=== PATIENT | female | born 1965 | race Caucasian/White ===

== ENCOUNTER → 2016-09-17 | Outpatient (CLI) | payer OTHER, BC ==
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
== END | disposition home or self-care (01) ==
LOC: C.RAD 14:38
PROVIDERS: ATTEND Nurse Practitioner Family
DX: M54.2 Cervicalgia (principal); V89.2XXA Person injured in unspecified motor-vehicle accident, traffic, initial encounter; M50.322 Other cervical disc degeneration at C5-C6 level; M50.321 Other cervical disc degeneration at C4-C5 level

== ENCOUNTER → 2017-01-20 | Outpatient (CLI) | payer BC ==
--- NOTE | 2017-01-21 12:30 | MAMMOGRAPHY REPORT ---
BILATERAL DIGITAL SCREENING MAMMOGRAM WITH CAD: 01/20/2017 CLINICAL HISTORY: Patient presents for routine screening. S/P bilateral augmentation. TECHNIQUE: Current study was also evaluated with a Computer Aided Detection (CAD) system. Bilateral CC and MLO views including implant displaced views were obtained. COMPARISON: Comparison is made to exams dated: 01/14/2016 mammogram, 01/02/2015 mammogram, 12/12/2013 m ammogram, 12/11/2012 mammogram, 11/29/2011 mammogram, and 11/23/2010 mammogram - [facility] ter. BREAST COMPOSITION: The tissue of both breasts is heterogeneously dense, which may obscure small mas ses. FINDINGS: No suspicious masses, calcifications, or areas of architectural distortion are noted in ei ther breast. There has been no significant interval change compared to prior exams. Bilateral subpec emilee saline implants are intact. IMPRESSION: ACR BI-RADS CATEGORY 2: BENIGN There is no mammographic evidence of malignancy. A 1 year screening mammogram is recommended. The pa tient will receive written notification of the results. Approximately 10% of breast cancers are not detected with mammography. A negative mammographic report should not delay biopsy if a clinically suggestive mass is present. Paris Amato M.D. /:01/20/2017 17:11:52 Cardiac Care Nurse: Wayne RAM)(M), [facility] letter sent: Normal 1/2 BI-RADS Code: ACR BI-RADS Category 2: Benign
== END | disposition home or self-care (01) ==
LOC: C.MAMM 16:24
PROVIDERS: ATTEND Physician Assistant
DX: Z12.31 Encounter for screening mammogram for malignant neoplasm of breast (principal)

== ENCOUNTER → 2017-08-18 | Outpatient (CLI) | payer OTHER ==
[~2017-08-18] VITALS: Ht 163.8 cm; Wt 54.2 kg
[2017-08-18 16:01] VITALS: BP 136/77; PULSE 77; Ht 163.8 cm; Wt 54.2 kg
== END | disposition home or self-care (01) ==
LOC: C.NEUR 15:20
PROVIDERS: ATTEND Internal Medicine Pulmonary Disease
DX: G47.33 Obstructive sleep apnea (adult) (pediatric) (principal); G47.19 Other hypersomnia

== ENCOUNTER → 2017-09-03 | Outpatient (CLI) | payer OTHER ==
--- NOTE | 2017-09-04 06:25 | PAP/PSG TECHNICIAN REPORT ---
[facility] Clinical Document Improvement Educator Polysomnogram Report Study name: None Report date: 09/04/2017 Study date: 09/03/2017 Referring Physician: Scott Herrera M.D. Name: ARIELARIALEXIS Interpreting Physician: Zack Pinto D.O. Date of : 1965 Clinical Document Improvement Educator: Tania Padilla, PSGT. Sex: Female Age: 52 StudyType: PSG Weight: 119.4 lbs Height: 52 years, Height 5' 4.5" Neck Circum:12.5 inches BMI: 20.18 Medications: Muti-Vit., Restasis, Vit.-C. Patient History 52 yr. Old female presents to the sleep lab for daytime fatigue, she states that she has been tired all her life. She sleeps an all her breaks while at work.ESS=14, Neck= 12 .5 inches. Parameters Monitored NPSG: E1-M2, E2-M1, Fp1-M2, Fp2-M1, F3-M2, F4-M2, F4-M1, C3-M2, C4-M2, C4-M1, O1-M2, O2-M2, O2-M1, T3-M2, T4-M1, P3-M2, P4-M1, CHIN1, CHIN2, HR, EKG, Legs, PFLOW, SNOR, FLOW, CFLOW, Tidal Volume, THOR, ABDO, SpO2, PLTH, CPRESS, ETCO2 Wave, ETCO2, pH Sleep Architecture Sleep Stages Time at Lights Off 10:14:58 PM STAGES Time (min.) TST (%) Time at Lights On 5:25:58 AM Wake 58.5 -- Total Recording Time (TRT) 431.50 min. N1 9.0 2 Total Sleep Period (TSP) 394.5 min. N2 281.0 75 Total Sleep Time (TST) 372.5min. N3 1.0 0 Awake Time 58.5 min. REM 81.5 22 Wake after Sleep Onset 22.0 min. Sleep Efficiency (SE) 86 % Sleep Onset Latency (SARAH) 36.5 min. Number of Stage 1 Shifts None Awakenings 10 Stage Changes 37 Number of REM periods 4 REM 81.5 22 REM Latency 95.0 min. NREM 291.0 78 Body Position Analysis Supine Right Left Side Prone Vertical Total Sleep Time (min.) 196.3 33.2 157.2 190.31 0.0 5.9 Total Sleep Time (%) 49% 9% 42% 51 0% N/A% Total Sleep Time REM (min.) 43.5 0.0 38.0 None 0.0 0.0 Total Sleep Time NREM (min.) 138.7 33.2 119.2 None 0.0 0.0 Intermittent Wake (min.) 14.2 3.7 34.8 None 0.0 5.9 Total Sleep Period (%) 49% None None None None None Arousals Myoclonus (PLM) * Events Count Index Events Count Index Spontaneous 41 7 Events Awake (PLMW) 1 1.0 Respiratory 13 2.1 Events Asleep w/ Arousal (PLMA) 1 0.2 PLM 1 0 Events Asleep w/o Arousal (PLMS) 62 10.0 Snoring 19 3 Total Asleep 63 10.1 Total 74 12 Total 64 9 Respiratory Analysis * CA OA MA CH H RERA Total Count 0 13 0 0 13 0 26 Index 0.0 2.1 0.0 0 2.1 0 4.2 Mean Duration 0.0 29.1 0.0 0.00 24.3 0.0 26.7 Longest Duration 0.0 40.5 0.0 0.00 0.0 0.0 47.8 Respiratory Event Summary Total Supine ~Supine Right Left Prone REM NREM Apneas Count 13 9 4 0 4 N/A 6 7 Index 2.1 3 1 0.0 1.5 N/A 4 1 Hypopneas (4% Desat) Count 13 9 4 0 4 N/A 4 9 Index 2.1 3.0 1 0.0 1.5 N/A 2.9 1.9 Apneas & All Hypopneas Count 26 18 8 0 8 N/A 10 16 Index 4.2 6 3 0 3 N/A 7.4 3.3 Respiratory Events (Route Sales Driver+All Hyp+RERA) Count 26 18 8 0 8 N/A 10 16 Index 4.2 6 3 0.0 3.1 N/A 7.4 3.3 Respiratory Related Arousal Count 13 18 5 0 5 N/A 4 9 Index 2.1 3 2 0 2 N/A 3 2 Snoring Analysis Supine Right Left Prone REM NREM Total Snore duration 8.1 min Snores count 158 9 132 N/A 124 175 299 Snore mean duration 1.6 Sec Snores index 52 16 50 N/A 91.3 36.1 48.2 TST with snoring (%) 2.2% Desaturation Event Summary: Minimum %SpO2 Event Count Mean/Min/Max Duration(sec.) Desaturation Index % Time In Bed > 90 27 33.2 / 13.3 / 60.0 3.8 99.6 86 - 90 0 N/A 0.0 0.4 81 - 85 0 N/A 0.0 0.0 76 - 80 0 N/A 0.0 0.0 71 - 75 0 N/A 0.0 0.0 66 - 70 0 N/A 0.0 0.0 61 - 65 0 N/A 0.0 0.0 56 - 60 0 N/A 0.0 0.0 51 - 55 0 N/A 0.0 0.0 < 50 0 N/A 0.0 0.0 Total REM NREM Awake <50% 0.0 min. 0.0 min. 0.0 min. 0.0 min. 51 - 60% 0.0 min. 0.0 min. 0.0 min. 0.0 min. 61 - 70% 0.0 min. 0.0 min. 0.0 min. 0.0 min. 71 - 80% 0.0 min. 0.0 min. 0.0 min. 0.0 min. 81 - 90% 1.8 min. 1.0 min. 0.8 min. 0.0 min. 91 - 100% 429.3 min. 80.5 min. 290.2 min. 58.5 min. Average 95 95 95 95 Minimum SpO2 88 88 88 92 Desaturation Event Index 3.8 8.1 3.3 0.0 # Desat. Events below 89% 1 N/A 1 N/A Time(%) with Saturation below 89% 0.1 0.0 0.0 0.0 Time(min.) with Saturation below 89% 0.3 0.1 0.1 0.0 Time (mins) REM (mins) NREM (mins) % of TST SpO2 Below 90% 9 4 N5 0.2 SpO2 Below 88% 1 0 0 0 Heart Rate Analysis Min (bpm) Max (bpm) Average (bpm) Awake 53 93 72 NREM 53 90 64 REM 55 88 63 Overall 53 90 64 Supplemental O2 Values Minimum O2 level: None Value Start Time End Time Clinical Document Improvement Educator Comments PSG Study MS. Paniagua slept in the right, left, and supine positions. No cardiac arrhythmia, PLM's noted. No bruxism noted. Snoring was noted and scored as a 3 on a scale of 1 through 5. (0=no snoring, 5=snoring loud enough to be heard through a closed door or down the holden way) awoke to use the restroom zero times during the night. Ms. Paniagua stated, I did not sleep as well as I do when I am in my own bed. The final report will be interpreted and signed by a sleep physician. The completed physician report will then be placed in the patient medical record. Therapy (cm H2O) 0 TIB (min.) 431.0 TST (min.) 372.5 Sleep Onset (min.) 36.5 REM Onset From Sleep (min.) 95.0 Sleep Efficiency % 86 Wakefulness (%) 14 Wakefulness (min.) 58.5 NREM 1 (%) 2 NREM 1 (min.) 9.0 NREM 2 (%) 75 NREM 2 (min.) 281.0 NREM 3 (%) 0 NREM 3 (min.) 1.0 REM (%) 22 REM (min.) 81.5 # Arousals 74 Arousal Index 12 # Snore 299 Snore Index 48.2 AHI 4.2 AHI Supine 6 AHI Non-Supine 3 NREM AHI 3.3 REM AHI 7.4 RDI 4.2 # Obstructive Apnea 13 # Central Apnea 0 # Mixed Apnea 0 # Hypopneas 13 RERAs 0 Total Respiratory Events 27 Time Below SpO2 89% (min.) 0.3 Mean NREM SpO2 (%) 95 Mean REM SpO2 (%) 95 Mean Sleep SpO2 (%) 95 Min NREM SpO2 (%) 88 Min REM SpO2 (%) 88 Position Supine (min.) 196.3 Position Non-supine (min.) 190.3 LM Index Sleep 10.1 LM Index NREM 9.3 LM Index REM 13.3 Mean Heart Rate (bpm) 64 Min Heart Rate (bpm) 53
--- NOTE | 2017-09-11 12:44 | Sleep Study ---
Sleep Study Report Date of Service: 09/04/2017 Sleep Study Report CLINICAL DATA: The patient is a 52-year-old female with a chief complaint of snoring and excessive daytime somnolence. Her [place] score is 14 out of a possible 24. Her BMI is normal at 20.18. There is a family history of sleep apnea in her mother. This was an in-lab overnight polysomnography. SLEEP ARCHITECTURE: The sleep period time was 394.5 minutes. The total sleep time was 372.5 minutes. The sleep efficiency was mildly reduced at 86 percent. The sleep latency was prolonged at 36.5 minutes. Wake after sleep onset was 22 minutes. REM latency was normal at 95 minutes. Sleep consisted of stage N1 2 percent, stage N2 75 percent, stage N3 0 percent stage REM 22 percent. AROUSAL DATA: The patient had a total of 74 arousals including 41 spontaneous arousals, 13 respiratory arousals, 1 PLM arousal, and 19 snoring arousals. The arousal index is 12. PLM DATA: The patient had a total of 63 periodic limb movements of sleep for a PLM index mildly elevated at 10.1. There was only 1 arousal associated with limb movements for a PLM arousal index of 0.2. EKG: The cardiac rates 53-90 beats per minute. No cardiac arrhythmia noted. RESPIRATORY DATA: The patient had a total of 26 respiratory events including 13 obstructive apneas and 13 hypopneas. Hypopneas were scored according to the 4 percent desaturation rule. The longest apnea was 40.5 seconds. The mean duration of the hypopneas was 24.3 seconds. The apnea-hypopnea index was 4.2 events per hour. This is in the upper limits of normal. This would not represent significant sleep apnea. OXIMETRY DATA: The average saturation for the night was 95 percent. The minimum saturation was 88 percent. There was a total of 0.3 minutes with saturations less than 89 percent. POT BUILDER COMMENTS: Patient slept on the right, left, and supine positions. No cardiac arrhythmia. PLMS noted. No bruxism noted. Snoring was noted and scored as a 3 on a scale of 1 through 5. The patient did not awaken to use the restroom during the nighttime. IMPRESSIONS: 1. No definite evidence of obstructive sleep apnea 2. Primary snoring COMMENTS: The patient does not have definite sleep apnea. She did have some apneic events. It would not be enough to qualify her for treatment. Her oxygenation was normal. She did have increased spontaneous arousals. The possibility of upper airway resistance syndrome cannot be excluded. Obviously other causes of daytime somnolence cannot be excluded. RECOMMENDATIONS: 1. It is suggested that the patient avoid sleeping in the supine position. Typically there is more respiratory events and snoring while supine. 2. Patient has a history of drinking between 2 and 4 glasses of wine per night. It is suggested that she avoid alcohol intake for approximately 3-4 hours prior to bed. 3. The patient should be advised the appropriate principles of sleep hygiene including having a regular sleep-wake schedule and allowing 7.5 hours of sleep time per night. 4. Patient has a history of having a dog on her bed. She does not believe this is contributing to her sleeping problems. Nonetheless it would be suggested that she not have the dog on the bed with her at least as a trial to determine if this improves her sleep. 5. If the patient's symptoms persist, consideration could be given to doing a repeat overnight sleep study to be followed by multiple sleep latency testing in order to evaluate for the degree of daytime somnolence and to help exclude narcolepsy. Copies To 1: Scott Herrera M.D.; Zack Pinto,
== END | disposition home or self-care (01) ==
LOC: C.NEUR 20:00
PROVIDERS: ATTEND Internal Medicine Pulmonary Disease
DX: R06.83 Snoring (principal)